=== PATIENT | male | born 1975 | race Caucasian/White ===

== ENCOUNTER 2017-07-31 01:57 | Emergency (ER) | payer BC, OTHER ==
[2017-07-31] MEDS ORDERED: DIPHENHYDRAMINE HCL 50 MG/ML VIAL IV ONE (03:25)
[2017-07-31] MEDS ORDERED: METOCLOPRAMIDE HCL INJ/PF 10 MG/2 ML SDV IV ONE (03:25)
[2017-07-31] MEDS ORDERED: NORMAL SALINE 1000 ML 1,000 ML IV ONE (03:25)
[2017-07-31] MEDS ORDERED: ONDANSETRON HCL INJ/PF 4 MG/2 ML SDV IV ONE (03:25)
--- NOTE | 2017-07-31 03:30 | ER Document Report ---
ED General - General Chief Complaint: Headache, Worst Ever Stated Complaint: HEADACHE Time Seen by Provider: 07/31/17 03:16 Notes: Patient is a 42-year-old male who presents with complaint of severe headache and neck pain. Patient is a history of pain in this location. He says several times in the past but never to this extent. He has had it for several days. He went to see his chiropractor as he usually does. Pain has only worsened. In the Last 24 hours pain has become much worse and now he has vomiting. No fevers. No infections. He does not take blood thinners. He sees a chiropractor on a weekly basis. His doctor has performed scans of his neck and back in the past. He has never had a scan of his head despite his multiple recurrent headaches in the past. No weakness or numbness into extremities. No other complaints at this time. TRAVEL OUTSIDE OF THE [place] IN LAST 30 DAYS: No - Related Data Allergies/Adverse Reactions: No Known Allergies Allergy (Verified 11/12/15 23:57) Past Medical History - Social History Smoking Status: Never Smoker Chew tobacco use (# tins/day): No Frequency of alcohol use: None Drug Abuse: None Family History: Reviewed & Not Pertinent Patient has suicidal ideation: No Patient has homicidal ideation: No Renal/ Medical History: Denies: Hx Peritoneal Dialysis Traumatic Medical History: Reports: Hx Fractures Past Surgical History: Reports: Hx Orthopedic Surgery - multiple - Immunizations Immunizations up to date: Yes Hx Diphtheria, Pertussis, Tetanus Vaccination: Yes Review of Systems - Review of Systems Notes: My Normal Review Basic REVIEW OF SYSTEMS: CONSTITUTIONAL : Denies fever, chills, or sweats. Denies recent illness. RESPIRATORY: Denies cough, cold, or chest congestion. Denies shortness of breath, difficulty breathing, or wheezing. GASTROINTESTINAL: Denies abdominal pain. Denies nausea, vomiting, or diarrhea. GENITOURINARY: Denies difficulty urinating, painful urination, burning, frequency, or blood in urine. FEMALE GENITOURINARY: Denies vaginal bleeding, abnormal or irregular periods. MUSCULOSKELETAL: Has neck pain SKIN: Denies rash or skin lesions. NEUROLOGICAL: Denies altered mental status or loss of consciousness. Severe headache. Denies weakness or paralysis or loss of use of either side. Denies problems with gait or speech. Denies sensory or motor loss. ALL OTHER SYSTEMS REVIEWED AND NEGATIVE. Physical Exam - Vital signs Vitals: Temp Pulse Resp BP Pulse Ox 98.2 F 69 24 H 123/81 99 07/31/17 02:12 07/31/17 02:12 07/31/17 02:12 07/31/17 02:12 07/31/17 02:12 - Notes Notes: General Appearance: Well nourished, alert, cooperative, no acute distress, severe obvious discomfort. Vitals: reviewed, See vital signs table. Head: no swelling or tenderness to the head Eyes: PERRL, EOMI, Conjuctiva clear Mouth: No decreasd moisture Throat: No tonsillar inflammation, No airway obstruction, No lymphadenopathy Neck: No reproducible pain to palpation of the neck. Lungs: No wheezing, No rales, No rhonci, No accessory muscle use, good air exchange bilaterally. Heart: Normal rate, Regular rythm, No murmur, no rub Extremities: strength 5/5 in all extremities, good pulses in all extremities, no swelling or tenderness in the extremities, no edema. Skin: warm, dry, appropriate color, no rash Neuro: speech clear, oriented x 3, normal affect, responds appropriately to questions. Cranial nerves II through XII are intact. Distal sensation intact. Patient moves all extremities without difficulty. Good distal sensation. Course - Re-evaluation Re-evalutation: 07/31/17 04:35 Patient says the nausea is gone but he still having some pain. I will give a dose of Dilaudid to see if this helps. 07/31/17 04:56 Patient is now resting and sleeping and is much more comfortable after receiving Dilaudid. Will let him rest and reassess him to see how he is feeling. 07/31/17 05:31 She is now awake and alert. He says his headache is gone and he looks and feels much improved. I had them he describes headache now that he is feeling improved and much more calm. He says his headaches are always right-sided. He says he really start behind his right eye and radiates through to the back of his head. Continue sounds almost as if he has cluster headaches. They do seem to happen frequently and are very painful and are becoming worse as of recently. There is also possibly to be tension headaches. Patient never had workup for his headaches. I think subarachnoid hemorrhage or aneurysm is less likely some; however, there are cases were a large aneurysm cause pressure pain behind the eyes and recurrent headaches even if it is not bleeding or leaking. I did discuss further workup with the patient is such as CTA to make sure he does not have any aneurysms. They are agreeable to this. If this is negative then I will refer him to neurology for further workup of his recurrent headaches and also to discuss treatments to help treat his headaches when they are first on setting. CT has been ordered. Dictation of this chart was performed using voice recognition software; therefore, there may be some unintended grammatical errors. 07/31/17 06:14 Patient CTA was negative. He continues to feel much improved. I will try Fioricet with him. I will refer him to neurology. I strongly encourage him return to ER immediately if he has worsening headaches, vomiting, fevers, or feels unwell. Patient agrees with plan will be discharged home. Dictation of this chart was performed using voice recognition software; therefore, there may be some unintended grammatical errors. - Vital Signs Vital signs: Temp Pulse Resp BP Pulse Ox 98.2 F 69 24 H 123/81 99 07/31/17 02:12 07/31/17 02:12 07/31/17 02:12 07/31/17 02:12 07/31/17 02:12 - Laboratory Result Diagrams: 07/31/17 04:30 07/31/17 04:30 Laboratory results interpreted by me: 07/31/17 07/31/17 04:30 04:30 WBC 3.0 L Plt Count 134 L Potassium 3.5 L Glucose 113 H Discharge - Discharge Clinical Impression: Headache Qualifiers: Headache type: unspecified Headache chronicity pattern: episodic headache Intractability: not intractable Qualified Code(s): R51 - Headache Condition: Good Disposition: HOME, SELF-CARE Additional Instructions: Please only take the Fioricet for a headache. Do not drive after taking it as it may make you very sleepy. Please return to the ER immediately if you have an intractable headache, fevers, vomiting, or feel unwell. Please call the neurologist to make a close follow up appointment for further workup and tramtn options for your headaches. Prescriptions: Butalb/Acetaminophen/Caffeine [Fioricet (50-325-40 mg) Tablet] 1 tab PO Q4HP PRN #20 tab PRN Reason: Referrals: ANJALI CORTEZ MD [ACTIVE STAFF] - Follow up in 3-5 days CHAD AMADO MD [EMERITUS] - Follow up in 3-5 days
--- NOTE | 2017-07-31 03:57 | RADIOLOGY REPORT (SQ) ---
EXAM DESCRIPTION: CT HEAD WITHOUT CLINICAL HISTORY: 42 years Male, headache COMPARISON: None. TECHNIQUE: No contrast. This exam was performed according to our departmental dose-optimization program, which includes automated exposure control, adjustment of the mA and/or kV according to patient size and/or use of iterative reconstruction technique. FINDINGS: No hemorrhage or infarct. No mass, mass effect, or midline shift. Brain and extra-axial structures appear otherwise intact. IMPRESSION: Normal CT of the head.
[2017-07-31] MEDS ORDERED: HYDROMORPHONE HCL INJ/PF 2 MG/ML AMPULE IV ONE (04:35)
[2017-07-31 04:36] LABS: ABSOLUTE EOSINOPHILS # (AUTO) 0.1 10^3/uL (0.0-0.6); ABSOLUTE LYMPHOCYTES (AUTO) 0.5 10^3/uL (0.5-4.7); ABSOLUTE MONOCYTES (AUTO) 0.3 10^3/uL (0.1-1.4); ABSOLUTE NEUT (AUTO) 2.1 10^3/uL (1.7-8.2); BASOPHILS % (AUTO) 0.9 % (0-2); EOSINOPHILS % (AUTO) 1.9 % (0-6); HEMATOCRIT 48.3 % (37.9-51.0); HEMOGLOBIN 16.2 g/dL (13.5-17.0); LYMPHOCYTES % (AUTO) 17.3 % (13-45); MEAN CORPUSCULAR HEMOGLOBIN 30.4 pg (27.0-33.4); MEAN CORPUSCULAR HGB CONC 33.5 g/dL (32.0-36.0); MEAN CORPUSCULAR VOLUME 91 fl (80-97); MONOCYTES % (AUTO) 9.3 % (3-13); PLATELET COUNT 134 10^3/uL (150-450); RED BLOOD COUNT 5.31 10^6/uL (4.35-5.55); RED CELL DISTRIBUTION WIDTH 13.3 % (11.5-14.0); SEGMENTED NEUTROPHILS % (AUTO) 70.6 % (42-78); TOTAL CELLS COUNTED % (AUTO) 100 %
[2017-07-31 05:12] LABS: ANION GAP 11 (5-19); BLOOD UREA NITROGEN 12 mg/dL (7-20); CALCIUM 9.3 mg/dL (8.4-10.2); CARBON DIOXIDE 24 mmol/L (22-30); CHLORIDE 103 mmol/L (98-107); GLUCOSE 113 mg/dL (75-110); POTASSIUM 3.5 mmol/L (3.6-5.0); SODIUM 138.2 mmol/L (137-145)
--- NOTE | 2017-07-31 06:04 | RADIOLOGY REPORT (SQ) ---
EXAM DESCRIPTION: CTA HEAD CLINICAL HISTORY: 42 years Male, headache COMPARISON: CT, head, same day. TECHNIQUE: 70 mL IV contrast. Multiplanar reformat. This exam was performed according to our departmental dose-optimization program, which includes automated exposure control, adjustment of the mA and/or kV according to patient size and/or use of iterative reconstruction technique. Limitation: No MIP available. FINDINGS: [place] of [place] appears intact. No significant stenosis or occlusion. No vasculitides. No aneurysm. No enhancement abnormality. IMPRESSION: Normal CTA of the brain.
[2017-07-31 06:57] VITALS: BP 128/64
== END 2017-07-31 06:57 | disposition home or self-care (01) ==
LOC: ER 01:57
DX: R51 Headache (principal); M54.2 Cervicalgia; R11.10 Vomiting, unspecified
CPT/HCPCS: 99284; 96361; 96374; 96375; 36415; 85025; 80048; 70450; 70496; J1200; J2765; J1170; J2405; J7030